=== PATIENT | female | born 1950 | race Caucasian/White ===

== ENCOUNTER 2017-10-29 03:54 | Observation (INO) | payer MEDICARE ==
[2017-10-29] MEDS: LORAZEPAM 1 MG TAB PO (05:05)
[2017-10-29 05:13] LABS: ADD MAN DIFF? NO
[2017-10-29 05:27] LABS: WHITE BLOOD COUNT 9.2 10^3/ul (4.8-10.8)
[2017-10-29 05:27] LABS: BASOPHILS % 0.3 % (0.0-2.0); EOSINOPHILS # 0.1 10^3/ul (0.0-0.5); EOSINOPHILS % 1.2 % (0.0-7.0); HEMATOCRIT 35.8 % (37.0-47.0); HEMOGLOBIN 11.5 g/dl (12.0-16.0); LYMPHOCYTES % 32.9 % (15.0-51.0); MEAN CORPUSCULAR HEMOGLOBIN 27.1 pg (29.0-33.0); MEAN CORPUSCULAR HGB CONC 32.1 g/dl (32.0-37.0); MEAN CORPUSCULAR VOLUME 84.2 fl (82.0-101.0); MEAN PLATELET VOLUME 9.7 fl (7.4-10.4); MONOCYTE # 1.1 10^3/ul (0.3-0.9); MONOCYTES % 12.5 % (0.0-11.0); NEUTROPHIL # 4.8 10^3/ul (1.6-7.5); NEUTROPHILS % 52.8 % (39.0-77.0); PLATELET COUNT 279 10^3/UL (140-415); RED BLOOD COUNT 4.25 10^6/ul (4.20-5.40)
[2017-10-29 05:37] LABS: INR 0.82; PROTIME 11.3 Sec (11.9-14.9); PT RATIO 0.9
[2017-10-29 05:46] LABS: ANION GAP 14 (8-16); BLOOD UREA NITROGEN 20 mg/dl (7-20); CARBON DIOXIDE 20 mmol/L (21-31); CHLORIDE 114 mmol/L (97-110); CREATININE 0.65 mg/dl (0.44-1.00); GLUCOSE 150 mg/dl (70-220); POTASSIUM 3.4 mmol/L (3.5-5.1); SODIUM 145 mmol/L (135-144)
[2017-10-29 05:51] LABS: ETHANOL < 10.0 mg/dl
[2017-10-29 06:00] LABS: TROPONIN-I < 0.012 ng/ml (0.000-0.120)
[2017-10-29] MEDS ORDERED: LORAZEPAM 2 MG INJ (06:37)
[2017-10-29] MEDS: LORAZEPAM 2 MG INJ IV (06:41)
[2017-10-29] MEDS: NITROGLYCERIN 2% 1 GM OINT PKT TD (06:51)
[2017-10-29] MEDS ORDERED: hydrALAzine 20 MG INJ IV (08:30)
[2017-10-29] MEDS ORDERED: morphine 2 MG INJ IV ×2 (08:30→12:30)
[2017-10-29] MEDS: ASPIRIN 325 MG TAB PO (08:41)
[2017-10-29] MEDS: POTASSIUM CHLORIDE (SR) 20 MEQ TAB PO (08:42)
[2017-10-29 10:41] LABS: AMPHETAMINE/METHAMPHETAMINE Negative (NEGATIVE); BARBITURATES Negative (NEGATIVE); BENZODIAZEPINES Negative (NEGATIVE); CANNABINOIDS Negative (NEGATIVE); COCAINE Negative (NEGATIVE); OPIATES Negative (NEGATIVE)
[2017-10-29 11:24] LABS: CREATINE KINASE 90 IU/L (23-200)
[2017-10-29 11:33] LABS: CK INDEX 1.8; CK-MB 1.58 ng/ml (0.0-2.4); TROPONIN-I 0.015 ng/ml (0.000-0.120)
[2017-10-29] MEDS ORDERED: ALBUTEROL/IPRATROPIUM (NEB) 3 ML AMP HHN (12:30)
[2017-10-29] MEDS ORDERED: NITROGLYCERIN (SL) 0.4 MG TAB SL (12:30)
[2017-10-29] MEDS ORDERED: LORAZEPAM 2 MG INJ IV ×2 (12:30→13:00)
[2017-10-29] MEDS ORDERED: MAGNESIUM HYDROXIDE 30ML CUP PO (12:30)
[2017-10-29] MEDS ORDERED: NACL 0.9% 3 ML SYG IV (12:30)
[2017-10-29] MEDS ORDERED: NA PHOSPHATE/BIPHOS 133 ML ENEMA PR (12:30)
[2017-10-29] MEDS ORDERED: DOCUSATE SODIUM 100 MG CAP PO (12:30)
[2017-10-29 13:19] LABS: ADD UMIC YES; UR ASCORBIC ACID NEGATIVE (NEGATIVE); UR BILIRUBIN (Dip) NEGATIVE (NEGATIVE); UR BLOOD (Dip) 2+ mg/dL (NEGATIVE); UR CLARITY CLEAR (CLEAR); UR COLOR COLORLESS (YELLOW); UR GLUCOSE (Dip) NEGATIVE (NEGATIVE); UR KETONES (Dip) NEGATIVE (NEGATIVE); UR LEUKOCYTE ESTERASE (Dip) 1+ Leu/ul (NEGATIVE); UR NITRITE (Dip) NEGATIVE (NEGATIVE); UR RBC 46 /HPF (0-5); UR SPECIFIC GRAVITY (Dip) 1.005 (1.003-1.030); UR SQUAMOUS EPITHELIAL CELL FEW /HPF (FEW); UR TOTAL PROTEIN (Dip) NEGATIVE (NEGATIVE); UR UROBILINOGEN (Dip) NEGATIVE (NEGATIVE); UR WBC 13 /HPF (0-5)
[2017-10-29] MEDS: ATORVASTATIN 80 MG TAB PO (13:33)
[2017-10-29 14:28] LABS: CREATINE KINASE 92 IU/L (23-200)
[2017-10-29 14:41] LABS: CK INDEX 1.7; CK-MB 1.55 ng/ml (0.0-2.4); TROPONIN-I 0.017 ng/ml (0.000-0.120)
[2017-10-29] MEDS: ISOSORBIDE DINITRATE 10 MG TAB PO ×2 (15:48→21:04)
[2017-10-29] MEDS: HYDROCODONE/APAP (5/325) TAB PO (18:01)
[2017-10-29 20:18] LABS: CREATINE KINASE 91 IU/L (23-200)
[2017-10-29 20:28] LABS: CK INDEX 1.3; CK-MB 1.15 ng/ml (0.0-2.4)
[2017-10-29 20:30] LABS: TROPONIN-I < 0.012 ng/ml (0.000-0.120)
[2017-10-29] MEDS: HEPARIN 5,000 UNIT/0.5 ML VIAL SC (21:12)
[2017-10-29] MEDS: ACETAMINOPHEN 325 MG TAB PO (21:59)
[2017-10-29] MEDS: ONDANSETRON 4 MG INJ IV (23:55)
[2017-10-30] MEDS: HYDROCODONE/APAP (5/325) TAB PO ×4 (01:24→22:30)
[2017-10-30] MEDS: PANTOPRAZOLE 40 MG INJ IV (05:24)
[2017-10-30] MEDS: ACETAMINOPHEN 325 MG TAB PO (05:26)
[2017-10-30 06:14] LABS: ADD MAN DIFF? NO
[2017-10-30 06:25] LABS: BASOPHILS % 0.4 % (0.0-2.0); EOSINOPHILS # 0.1 10^3/ul (0.0-0.5); EOSINOPHILS % 1.3 % (0.0-7.0); HEMATOCRIT 34.4 % (37.0-47.0); LYMPHOCYTES # 2.8 10^3/ul (0.8-2.9); MEAN CORPUSCULAR HEMOGLOBIN 27.3 pg (29.0-33.0); MEAN CORPUSCULAR VOLUME 85.4 fl (82.0-101.0); MEAN PLATELET VOLUME 9.8 fl (7.4-10.4); MONOCYTE # 1.1 10^3/ul (0.3-0.9); MONOCYTES % 9.6 % (0.0-11.0); NEUTROPHILS % 63.4 % (39.0-77.0); PLATELET COUNT 273 10^3/UL (140-415); RED BLOOD COUNT 4.03 10^6/ul (4.20-5.40); RED CELL DISTRIBUTION WIDTH 16.2 % (11.5-14.5)
[2017-10-30 06:58] LABS: ANION GAP 14 (8-16); BLOOD UREA NITROGEN 15 mg/dl (7-20); CALCIUM 8.7 mg/dl (8.4-10.2); CARBON DIOXIDE 27 mmol/L (21-31); CHLORIDE 107 mmol/L (97-110); CHOL/HDL RATIO 2.7 RATIO; CHOLESTEROL 144 mg/dl (100-200); CREATININE 0.71 mg/dl (0.44-1.00); GLUCOSE 102 mg/dl (70-220); HDL CHOLESTEROL 52 mg/dl (35-98); LDL CHOLESTEROL,CALCULATED 69 mg/dl; MAGNESIUM 2.2 mg/dl (1.7-2.5); PHOSPHORUS 3.3 mg/dl (2.5-4.9); POTASSIUM 4.1 mmol/L (3.5-5.1); SODIUM 144 mmol/L (135-144); TRIGLYCERIDES 115 mg/dl (0-149)
[2017-10-30] MEDS: ISOSORBIDE DINITRATE 10 MG TAB PO ×3 (08:26→20:30)
[2017-10-30] MEDS: ASPIRIN (EC) 325 MG TAB PO (08:27)
[2017-10-30] MEDS: HEPARIN 5,000 UNIT/0.5 ML VIAL SC ×2 (08:31→20:34)
[2017-10-30] MEDS: REGADENOSON 0.4 MG/5 ML SYG (12:09)
[2017-10-30] MEDS: METOPROLOL 25 MG TAB PO (20:30)
[2017-10-31] MEDS: HYDROCODONE/APAP (5/325) TAB PO ×3 (04:49→20:55)
[2017-10-31] MEDS: PANTOPRAZOLE 40 MG INJ IV (05:07)
[2017-10-31 07:16] LABS: ADD MAN DIFF? NO
[2017-10-31 07:24] LABS: WHITE BLOOD COUNT 9.7 10^3/ul (4.8-10.8)
[2017-10-31 07:24] LABS: BASOPHIL # 0.1 10^3/ul (0.0-0.1); BASOPHILS % 0.5 % (0.0-2.0); EOSINOPHILS # 0.2 10^3/ul (0.0-0.5); EOSINOPHILS % 2.1 % (0.0-7.0); HEMATOCRIT 34.3 % (37.0-47.0); LYMPHOCYTES # 2.4 10^3/ul (0.8-2.9); LYMPHOCYTES % 24.4 % (15.0-51.0); MEAN CORPUSCULAR HEMOGLOBIN 27.6 pg (29.0-33.0); MEAN CORPUSCULAR HGB CONC 32.1 g/dl (32.0-37.0); MEAN PLATELET VOLUME 9.8 fl (7.4-10.4); MONOCYTES % 10.4 % (0.0-11.0); NEUTROPHIL # 6.1 10^3/ul (1.6-7.5); NEUTROPHILS % 62.3 % (39.0-77.0); PLATELET COUNT 271 10^3/UL (140-415); RED BLOOD COUNT 3.99 10^6/ul (4.20-5.40); RED CELL DISTRIBUTION WIDTH 16.5 % (11.5-14.5)
[2017-10-31 07:56] LABS: ANION GAP 12 (8-16); BLOOD UREA NITROGEN 17 mg/dl (7-20); CALCIUM 8.7 mg/dl (8.4-10.2); CARBON DIOXIDE 23 mmol/L (21-31); CHLORIDE 111 mmol/L (97-110); CREATININE 0.77 mg/dl (0.44-1.00); GLUCOSE 153 mg/dl (70-220); POTASSIUM 3.9 mmol/L (3.5-5.1); SODIUM 142 mmol/L (135-144)
[2017-10-31] MEDS: METOPROLOL 25 MG TAB PO ×2 (08:22→23:14)
[2017-10-31] MEDS: ISOSORBIDE DINITRATE 10 MG TAB PO ×3 (08:22→23:13)
[2017-10-31] MEDS: HEPARIN 5,000 UNIT/0.5 ML VIAL SC (08:40)
[2017-10-31] MEDS: ASPIRIN (EC) 325 MG TAB PO (08:40)
[2017-10-31] MEDS: SUMATRIPTAN 25 MG TAB PO (13:31)
[2017-10-31] MEDS ORDERED: SUMATRIPTAN 50 MG TAB PO (15:00)
[2017-10-31] MEDS ORDERED: IODIXANOL LOCM 100 ML BTL (18:31)
[2017-10-31] MEDS ORDERED: LIDOCAINE 1% (MDV) 20 ML INJ (18:31)
[2017-10-31] MEDS ORDERED: MIDAZOLAM 1 MG/ML 2 ML INJ (18:32)
[2017-10-31] MEDS ORDERED: FENTAnyl 50 MCG/ML VIAL (18:32)
[2017-10-31] MEDS ORDERED: VERAPAMIL 5 MG INJ (18:32)
[2017-10-31] MEDS ORDERED: NITROGLYCERIN (IC) 100 MCG/ML INJ (18:32)
[2017-10-31] MEDS ORDERED: HEPARIN 1000 UNITS/ML 10 ML INJ (18:32)
[2017-10-31] MEDS ORDERED: AL HYDROX/MG HYDROX/SIMETH 30 ML CUP PO (19:30)
[2017-10-31] MEDS: SUMATRIPTAN 50 MG TAB PO (19:52)
[2017-10-31] MEDS: RIVAROXABAN 20 MG TABLET PO (20:16)
[2017-10-31] MEDS: hydrALAzine 20 MG INJ IV (20:35)
[2017-10-31] MEDS: SOD CHLORIDE 0.9% 1,000 ML IV (23:13)
[2017-10-31] MEDS: ATORVASTATIN 20 MG TAB PO (23:13)
[2017-10-31] MEDS: ZOLPIDEM 5 MG TAB PO (23:23)
[2017-11-01] MEDS: ACETAMINOPHEN 325 MG TAB PO (00:33)
[2017-11-01 07:17] LABS: ADD MAN DIFF? NO
[2017-11-01 07:31] LABS: WHITE BLOOD COUNT 8.5 10^3/ul (4.8-10.8)
[2017-11-01 07:31] LABS: BASOPHILS % 0.5 % (0.0-2.0); EOSINOPHILS # 0.2 10^3/ul (0.0-0.5); EOSINOPHILS % 2.5 % (0.0-7.0); HEMATOCRIT 34.9 % (37.0-47.0); HEMOGLOBIN 10.9 g/dl (12.0-16.0); LYMPHOCYTES # 2.2 10^3/ul (0.8-2.9); LYMPHOCYTES % 25.7 % (15.0-51.0); MEAN CORPUSCULAR HEMOGLOBIN 26.8 pg (29.0-33.0); MEAN CORPUSCULAR HGB CONC 31.2 g/dl (32.0-37.0); MONOCYTE # 0.8 10^3/ul (0.3-0.9); MONOCYTES % 9.6 % (0.0-11.0); NEUTROPHIL # 5.2 10^3/ul (1.6-7.5); NEUTROPHILS % 61.5 % (39.0-77.0); PLATELET COUNT 268 10^3/UL (140-415); RED BLOOD COUNT 4.06 10^6/ul (4.20-5.40); RED CELL DISTRIBUTION WIDTH 16.7 % (11.5-14.5)
[2017-11-01 08:05] LABS: ANION GAP 16 (8-16); BLOOD UREA NITROGEN 15 mg/dl (7-20); CALCIUM 9.2 mg/dl (8.4-10.2); CARBON DIOXIDE 24 mmol/L (21-31); CHLORIDE 107 mmol/L (97-110); CREATININE 0.67 mg/dl (0.44-1.00); GLUCOSE 123 mg/dl (70-220); POTASSIUM 3.9 mmol/L (3.5-5.1); SODIUM 143 mmol/L (135-144)
[2017-11-01] MEDS: RIVAROXABAN 20 MG TABLET PO (08:20)
[2017-11-01] MEDS: ISOSORBIDE DINITRATE 10 MG TAB PO ×2 (08:21→13:05)
[2017-11-01] MEDS: ASPIRIN (EC) 325 MG TAB PO (08:21)
[2017-11-01] MEDS: LOSARTAN 50 MG TAB PO (08:21)
[2017-11-01] MEDS: METOPROLOL 25 MG TAB PO (08:22)
[2017-11-01] MEDS: SUMATRIPTAN 50 MG TAB PO ×2 (08:29→15:31)
[2017-11-01] MEDS ORDERED: RIVAROXABAN 20 MG TABLET PO (09:00)
[2017-11-01] MEDS ORDERED: ROSUVASTATIN CALCIUM 5 MG PO (09:00)
[2017-11-01] MEDS ORDERED: LOSARTAN 50 MG TAB PO (09:00)
== END 2017-11-01 17:16 | disposition home or self-care (01) ==
LOC: E/R 03:54 → TEL 06:03
PROVIDERS: Internal Medicine
DX: R07.9 Chest pain, unspecified (principal); R94.39 Abnormal result of other cardiovascular function study; I25.10 Atherosclerotic heart disease of native coronary artery without angina pectoris; Z95.5 Presence of coronary angioplasty implant and graft; R73.03 Prediabetes; I10 Essential (primary) hypertension; E78.5 Hyperlipidemia, unspecified; I34.0 Nonrheumatic mitral (valve) insufficiency; R41.82 Altered mental status, unspecified; Z86.73 Personal history of transient ischemic attack (TIA), and cerebral infarction without residual deficits; Z86.711 Personal history of pulmonary embolism; Z95.0 Presence of cardiac pacemaker; Z88.8 Allergy status to other drugs, medicaments and biological substances
CPT/HCPCS: 36415; 70450; 71045; 78452; 80048; 80061; 80307; 81001; 82550; 82553; 82962; 83036; 83735; 84100; 84439; 84443; 84484; 85025; 85610; 85730; 87086; 92610; 93005; 93017; 93306; 93458; 96374; 97110; 97116; 97162; 97165; 97530; 99285-25; G0378